=== PATIENT | female | born 1985 | race Caucasian/White ===

== ENCOUNTER 2017-07-20 23:40 | Observation (INO) | payer OTHER ==
[2017-07-20] MEDS ORDERED: LR 1,000 ML IV SCH (23:45)
[2017-07-20] MEDS ORDERED: ONDANSETRON 4 MG/2 ML VIAL IVP PRN (23:55)
[2017-07-21 00:13] LABS: ABSOLUTE IMMATURE GRANULOCYTES 0.17 10^3/uL (0.00-0.10); ADD DIFF? NO; ADD MORPH? NO; ADD SCAN? NO; ATYPICAL LYMPHOCYTE FLAG 0 (0-99); FRAGMENT RBC FLAG 0 (0-99); HEMATOCRIT 37.6 % (38.0-47.0); HEMOGLOBIN 12.8 g/dL (12.6-16.3); LEFT SHIFT FLG 0 (0-99); LIPEMIA HEMOLYSIS FLAG 90 (0-99); MEAN CELL HEMOGLOBIN 32.7 pg (27.9-34.1); MEAN CELL VOLUME 95.9 fL (81.5-99.8); MEAN PLATELET VOLUME 10.6 fL (8.7-11.7); PLATELET CLUMPS FLAG 0 (0-99); PLATELET COUNT 275 10^3/uL (150-400); RED BLOOD CELL COUNT 3.92 10^6/uL (4.18-5.33); RED CELL DISTRIBUTION WIDTH 13.6 % (11.5-15.2)
[2017-07-21 00:29] LABS: ALANINE AMINOTRANSFERASE 38 IU/L (9-52); ASPARTATE AMINOTRANSFERASE 20 IU/L (14-46); BILIRUBIN,TOTAL 0.4 mg/dL (0.1-1.4); BILIRUBIN-UNCONJUGATED 0.4 mg/dL (0.0-1.1); CREATININE 0.6 mg/dL (0.6-1.0); GLOMERULAR FILTRATION RATE > 60; LACTATE DEHYDROGENASE 392 IU/L (313-618); URIC ACID 4.6 mg/dL (2.5-6.8)
[2017-07-21 00:55] LABS: COLOR YELLOW; LEUKOCYTE ESTERASE,URINE NEGATIVE (NEGATIVE); NITRITE,URINE NEGATIVE (NEGATIVE)
--- NOTE | 2017-07-21 00:58 | GHP ---
[f rep st] HISTORY AND PHYSICAL DATE OF ADMISSION: 07/20/2017 Patient is a 32-year-old G1, P0, who is at 31 weeks gestational age by an IVF with her partner's donor egg and sperm donor egg. The patient states that today she has just had significant amount of nausea and vomiting. Patient had traveled from [place] today and had a hamburger for lunch at an outside location and started to have nausea and vomiting throughout the day and has not been able to hold anything down. Significant in her history is she does have celiac disease. This is an IVF . Her blood type is A positive. She is rubella immune, hepatitis B surface antigen negative, HIV negative, RPR negative, and all other pap tests, etc., were all negative as well. Patient then presents to labor and delivery with the following. No fevers no chills PHYSICAL EXAMINATION: VITAL SIGNS: 135/90. Pulse 108 temp 36.7 LUNGS: Clear to auscultation bilateral. HEART: Regular rate and rhythm. She is slightly tachy at 106 ABDOMEN: Gravid and soft and nontender. heart rate tracing 130s with accelerations category 1 tracing. Irregular contractions on monitor SVE long/closed/High EXTREMITIES: No calf tenderness and no calf pain. Labs: h/h 13.4/36.6 Plt 189 WBC 17.3 AST 20 ALT 38 UA ketones 2+ ASSESSMENT AND PLAN: 1. Intrauterine at 31 weeks via in vitro fertilization . 2. Possible stomach flu with nausea, vomiting. Will start IV fluids. Given IV LR bolus. 3. Elevated blood pressures. Will order preeclamptic labs and a urinalysis. Patient also to receive Zofran for nausea. Patient symptoms improved with hydration follow up in clinic today no work today Follow up with WBC Return precautions given Rx Zofran /[id number]/MODL MTDD
== END 2017-07-21 01:15 | disposition home or self-care (01) ==
LOC: FLD 23:40
PROVIDERS: ADMIT Obstetrics & Gynecology; ATTEND Obstetrics & Gynecology
DX: O21.9 Vomiting of pregnancy, unspecified (principal); O28.9 Unspecified abnormal findings on antenatal screening of mother; R03.0 Elevated blood-pressure reading, without diagnosis of hypertension
CPT/HCPCS: G0378; J2405

== ENCOUNTER 2017-09-06 16:33 | Inpatient (IN) | payer OTHER ==
[2017-09-06] MEDS ORDERED: OXYTOCIN 20 UNIT in LR 1,000 ML IV PRN (18:02)
[2017-09-06] MEDS ORDERED: LR 1,000 ML IV PRN (18:02)
[2017-09-06] MEDS ORDERED: OLIVE OIL 118 ML BTL MISC PRN (18:02)
[2017-09-06] MEDS ORDERED: EPSOM SALT 454 GM TP PRN (18:02)
[2017-09-06] MEDS ORDERED: TERBUTALINE SULFATE 1 MG/ML VIAL IV PRN (18:02)
--- NOTE | 2017-09-06 18:02 | PDGENHP ---
History and Physical History and Physical: HPI: Patient is a 28 yo with IUP@ 38-0wks that presents to L&D with complaints of a headache x 24 hours despite relief attempts with Tylenol. She reports having some elevated BP's in the office and today. She denies any chest pain, SOB, epigastric pain, or visual changes. She denies any strong/intense contractions, LOF, VB. She reports +FM. EDC: 09/20/17 which is based on IVF transfer date. Her is complicated by: IVF (donor embryo), rubella NI, celiac disease Review of Systems: Constitutional: Denies any fever, chills, or fatigue HEENT: denies any visual changes, difficulty swallowing, hearing loss Cardiovascular: Denies any chest pain, palpitations, leg swelling Respiratory: denies any cough, wheezing, or shortness of breathe GI: Denies any nausea, vomiting, diarrhea, constipation : denies any dysuria, urgency, frequency, vaginal bleeding Musculoskeletal: denies any muscle or bone pain Skin: denies any rashes Neuro: denies any headache, seizures, lightheadedness, dizziness, or loss of consciousness Psychiatric: denies any depression, anxiety, or SI/HI thoughts HISTORY: Previous OB history: SAB x1 (09/2016) Past medical history: rubella NI, irregular heartbeat- normal cardiology eval ( per pt), celiac disease Past surgical history: ankle surgery x2, lap ovarian cystectomy, eustachian tubes x4 Medications: PNV, baby ASA, vitamin D Allergies (list reaction): NKDA LABS: Rh: A+ ABS: Neg Rubella: Immune HbsAg: NR HIV: NR VDRL: NR 1hr: 106 GC: Neg Chlamydia: Neg Pap: Normal GBS: negative PHYSICAL EXAM: Constitutional: WN, A&Ox3 HEENT: normocephalic atraumatic, supple Heart: RRR, no murmur Chest: CTA-B Abdomen: Soft, nontender, gravid SVE: cl/th/high Extremities: trace edema, negative homans sign, 1+DTRs, neg clonus Neuro: grossly normal Psych: normal affect assessment: Reassuring FHTs, baseline 145 +accels, no decels, moderate variability Contractions: toco q 4-8 Assessment: 1) 28yo with IUP@ 38wks (by IVF transfer date) 2) IOL 2/2 pre-eclampsia without severe features 3) GBS negative 4) Cat 1 FHR tracing Plan: 1) Admit to L&D 2) monitor BPs, consider starting Magnesium sulfate if BPs >/=160/110 3) start IOL with cytotec 4) cont EFM 5) consulted with Dr. Janie Olvera- agrees with POC
[2017-09-06 18:04] LABS: PLATELET COUNT 269 10^3/uL (150-400)
[2017-09-06] MEDS ORDERED: LR 1,000 ML IV ONE (18:46)
[2017-09-06] MEDS: ACETAMINOPHEN 500 MG TAB PO PRN (19:15)
[2017-09-06] MEDS: MISOPROSTOL 100 MCG TAB PO SCH (20:32)
[2017-09-07] MEDS: MISOPROSTOL 100 MCG TAB PO SCH ×4 (00:36→13:24)
[2017-09-07] MEDS: ACETAMINOPHEN 500 MG TAB PO PRN ×2 (04:09→22:41)
--- NOTE | 2017-09-07 07:01 | OBPROG ---
Labor Progress Note Assessment/Plan: Assessment: [id number] with IUP@38-1wks PreEclampsia without severe features GBS Negative IOL, s/p cytotec x2, paez bulb in place currently Plan: expectant management pain management PRN start pitocin once paez bulb out reassess 2hr/PRN anticipate 09/07/17 06:58 Subjective/Intrapartum Course: 09/07/17 06:59 Pt doing well, was able to get some sleep. She states she is feeling contractions, but denies any pain medication. Her partner, Damaris, is @ BS and supportive. She reports mild headaches through the night, relieved with tylenol. She denies any visual changes, epigastric pain. Objective: 09/06/17 17:45 09/06/17 17:45 Patient ABO/Rh A POSITIVE 09/06/17 17:45 Uric Acid 4.8 mg/dL (2.5-6.8) 09/06/17 17:45 Total Bilirubin 0.4 mg/dL (0.1-1.4) 09/06/17 17:45 Conjugated Bilirubin 0.2 mg/dL (0.0-0.5) 09/06/17 17:45 Unconjugated Bilirubin 0.2 mg/dL (0.0-1.1) 09/06/17 17:45 AST 29 IU/L (14-46) 09/06/17 17:45 ALT 34 IU/L (9-52) 09/06/17 17:45 Lactate Dehydrogenase 400 IU/L (313-618) 09/06/17 17:45 - SVE Dilation (cm): 1 Effacement (%): 50 Station: -2 Membranes: Intact - Contraction Pattern Assessment Current Contraction Pattern: Regular - Procedures Non-surgical Procedures: Other (Specify) (paez bulb placed, 40mL) Oxytocin Orders Assessment - Pre-Induction/Augmentation Assessment Gestational Age: 38 week(s) and 0 day(s) ICD10 Worksheet Patient Problems: Problems Problem Status Onset Encounter for induction of labor Acute Pre-eclampsia during in third trimester, antepartum Acute - ICD10 Problem Qualifiers (1) Pre-eclampsia during in third trimester, antepartum (2) Encounter for induction of labor
--- NOTE | 2017-09-07 09:47 | OBPROG ---
Labor Progress Note Assessment/Plan: Assessment: IUP at 38+ wks preeclampsia - stable BP and headache controlled with tylenol, labs normal cytotec with non-favorable cervix yesterday, paez since 6:30a Plan: will remove paez at 8 hrs and begin pitocin 09/07/17 09:45 Subjective/Intrapartum Course: 09/07/17 06:59 Pt doing well, was able to get some sleep. She states she is feeling contractions, but denies any pain medication. Her partner, Damaris, is @ BS and supportive. She reports mild headaches through the night, relieved with tylenol. She denies any visual changes, epigastric pain. 09/07/17 09:47 Pt doing ok - now having some back pain- feels good leaning on ball. COSTA ok after tylenol at 4a. cramping with paez. Objective: 09/06/17 17:45 09/06/17 17:45 Patient ABO/Rh A POSITIVE 09/06/17 17:45 Uric Acid 4.8 mg/dL (2.5-6.8) 09/06/17 17:45 Total Bilirubin 0.4 mg/dL (0.1-1.4) 09/06/17 17:45 Conjugated Bilirubin 0.2 mg/dL (0.0-0.5) 09/06/17 17:45 Unconjugated Bilirubin 0.2 mg/dL (0.0-1.1) 09/06/17 17:45 AST 29 IU/L (14-46) 09/06/17 17:45 ALT 34 IU/L (9-52) 09/06/17 17:45 Lactate Dehydrogenase 400 IU/L (313-618) 09/06/17 17:45 - SVE Membranes: Intact - Contraction Pattern Assessment Current Contraction Pattern: Regular (q 2-5 min since paez) - FHR Assessment Wayne FHR (bpm): 140 FHR Pattern Variability: Moderate FHR Category: 1 Oxytocin Orders Assessment - Pre-Induction/Augmentation Assessment Gestational Age: 38 week(s) and 0 day(s) ICD10 Worksheet Patient Problems: Problems Problem Status Onset Pre-eclampsia during in third trimester, antepartum Acute Encounter for induction of labor Acute
[2017-09-07] MEDS ORDERED: LIDOCAINE 1% 300 MG/30 ML SDV ONE (14:18)
[2017-09-07] MEDS ORDERED: OXYTOCIN 10 UNIT/ML VIAL ONE (14:19)
[2017-09-07] MEDS ORDERED: AMMONIA AROMATIC 1 EACH AMP IH ONE (14:19)
[2017-09-07] MEDS ORDERED: TERBUTALINE SULFATE 1 MG/ML VIAL ONE (14:19)
[2017-09-07] MEDS ORDERED: MISOPROSTOL 200 MCG TAB ONE (14:19)
[2017-09-07] MEDS ORDERED: OLIVE OIL 118 ML BTL ONE (14:19)
--- NOTE | 2017-09-07 15:03 | OBPROG ---
Labor Progress Note Assessment/Plan: Assessment: IUP at 38+ wks preeclampsia - stable BP and headache controlled with tylenol, labs normal cytotec with non-favorable cervix yesterday, paez out and favorable cx - will begin pit Plan: begin pitocin, AROM when desires 09/07/17 09:45 09/07/17 14:58 Subjective/Intrapartum Course: 09/07/17 06:59 Pt doing well, was able to get some sleep. She states she is feeling contractions, but denies any pain medication. Her partner, Damaris, is @ BS and supportive. She reports mild headaches through the night, relieved with tylenol. She denies any visual changes, epigastric pain. 09/07/17 09:47 Pt doing ok - now having some back pain- feels good leaning on ball. COSTA ok after tylenol at 4a. cramping with paez. 09/07/17 14:59 Pt doing ok - not back pain now - ready for paez removal, has eaten lightly today. No COSTA or n/v - no visual changes 09/07/17 15:03 Paez was removed and cx 75/-1, light bloody show Objective: 09/06/17 17:45 09/06/17 17:45 Patient ABO/Rh A POSITIVE 09/06/17 17:45 Uric Acid 4.8 mg/dL (2.5-6.8) 09/06/17 17:45 Total Bilirubin 0.4 mg/dL (0.1-1.4) 09/06/17 17:45 Conjugated Bilirubin 0.2 mg/dL (0.0-0.5) 09/06/17 17:45 Unconjugated Bilirubin 0.2 mg/dL (0.0-1.1) 09/06/17 17:45 AST 29 IU/L (14-46) 09/06/17 17:45 ALT 34 IU/L (9-52) 09/06/17 17:45 Lactate Dehydrogenase 400 IU/L (313-618) 09/06/17 17:45 - SVE Dilation (cm): 4 Effacement (%): 75 Station: -1 Membranes: Intact - Contraction Pattern Assessment Current Contraction Pattern: Regular (q3-5 min) - FHR Assessment Wayne FHR (bpm): 140 FHR Pattern Variability: Moderate FHR Category: 1 - Procedures Non-surgical Procedures: Other (Specify) (paez bulb placed, 40mL) Oxytocin Orders Assessment - Pre-Induction/Augmentation Assessment Gestational Age: 38 week(s) and 0 day(s) ICD10 Worksheet Patient Problems: Problems Problem Status Onset Encounter for induction of labor Acute Pre-eclampsia during in third trimester, antepartum Acute
[2017-09-07] MEDS ORDERED: LR 500 ML IV PRN (15:04)
[2017-09-07] MEDS ORDERED: OXYTOCIN 30 UNIT in NS 500 ML IV SCH (15:15)
[2017-09-07] MEDS ORDERED: CALCIUM CARBONATE 500 MG CHEWABLE TAB PO ONE (17:54)
[2017-09-07] MEDS ORDERED: CALCIUM CARBONATE 500 MG CHEWABLE TAB PO PRN (17:56)
--- NOTE | 2017-09-07 20:09 | OBPROG ---
Labor Progress Note Assessment/Plan: Assessment: IUP at 38+ wks preeclampsia - stable BP and headache controlled with tylenol, labs normal cytotec with non-favorable cervix yesterday, paez out and favorable cx - pit for several hours desires LEEANN then AROM Plan: LEEANN now as pt wants to rest, then AROM 09/07/17 09:45 09/07/17 14:58 09/07/17 20:06 Subjective/Intrapartum Course: 09/07/17 06:59 Pt doing well, was able to get some sleep. She states she is feeling contractions, but denies any pain medication. Her partner, Damaris, is @ BS and supportive. She reports mild headaches through the night, relieved with tylenol. She denies any visual changes, epigastric pain. 09/07/17 09:47 Pt doing ok - now having some back pain- feels good leaning on ball. COSTA ok after tylenol at 4a. cramping with paez. 09/07/17 14:59 Pt doing ok - not back pain now - ready for paez removal, has eaten lightly today. No COSTA or n/v - no visual changes 09/07/17 15:03 Paez was removed and cx 4/75/-1, light bloody show 09/07/17 20:07 pt has been on pit - on 11 mu/min, mild to mod intensity - wants LEEANN to rest then AROM Objective: 09/06/17 17:45 09/06/17 17:45 Patient ABO/Rh A POSITIVE 09/06/17 17:45 Uric Acid 4.8 mg/dL (2.5-6.8) 09/06/17 17:45 Total Bilirubin 0.4 mg/dL (0.1-1.4) 09/06/17 17:45 Conjugated Bilirubin 0.2 mg/dL (0.0-0.5) 09/06/17 17:45 Unconjugated Bilirubin 0.2 mg/dL (0.0-1.1) 09/06/17 17:45 AST 29 IU/L (14-46) 09/06/17 17:45 ALT 34 IU/L (9-52) 09/06/17 17:45 Lactate Dehydrogenase 400 IU/L (313-618) 09/06/17 17:45 - SVE Membranes: Intact - Contraction Pattern Assessment Current Contraction Pattern: Regular (q 3-4 min on 11 pit) - FHR Assessment Wayne FHR (bpm): 140 FHR Pattern Variability: Moderate FHR Category: 1 Oxytocin Orders Assessment - Pre-Induction/Augmentation Assessment Gestational Age: 38 week(s) and 0 day(s) ICD10 Worksheet Patient Problems: Problems Problem Status Onset Encounter for induction of labor Acute Pre-eclampsia during in third trimester, antepartum Acute
--- NOTE | 2017-09-07 20:41 | PREANESOB ---
Obstetric Pre-Anesthesia Info - General Info : 2 Para: 0 SHERI: 09/20/17 Gestational Age: 38 week(s) and 0 day(s) - Info Status: Full Term FHR Pattern: Reassuring - Labor Status Cervical Dilation per last OB SVE: 4 Station per last OB SVE: -1 Labor Epidural: Yes Anesthesia Allergies/Adverse Reactions: Allergy/AdvReac Type Severity Reaction Status Date / Time gluten Allergy Verified 09/06/17 17:41 Home Medications: Medication Instructions Recorded Ondansetron Odt [Zofran Odt 4 mg 4 mg PO Q4 #20 tab 07/21/17 (*)] Aspirin 81mg (*) 09/06/17 Docusate Sodium [Colace] 09/06/17 IRON,CARBONYL [IRON] 09/06/17 Vit27&Calcium/Iron/FA 09/06/17 [] Vitamin D3 2000 units tab (OTC) 09/06/17 Visit Medications: Generic Name Dose Route Start Last Admin Trade Name Freq PRN Reason Stop Dose Admin Acetaminophen 1,000 mg 09/06/17 18:45 09/07/17 04:09 Tylenol PO 03/05/18 18:44 1,000 mg Q6HRS PRN Administration Pain, Mild/Fever, Can Take PO Calcium Carbonate 500 mg 09/07/17 17:56 Tums PO 03/06/18 17:55 TID PRN Indigestion Oxytocin 20 unit/ Lactated 1,002 mls @ 150 mls/hr 09/06/17 18:02 Ringer's IV PRN PRN Post- bleeding Lactated Ringer's 500 mls @ 500 mls/hr 09/07/17 15:04 Lr IV 09/08/17 15:04 PRN PRN Maternal Hypotension Oxytocin 30 unit/ Sodium 503 mls @ 0 mls/hr 09/07/17 15:15 09/07/17 15:21 Chloride IV 03/06/18 15:14 503 mls CONT KAYDEN Administration Protocol Per Protocol Ibuprofen 600 mg 09/06/17 18:02 Motrin PO 03/05/18 18:01 Q6HRS PRN post , inflammation Magnesium Sulfate 454 gm 09/06/17 18:02 Epsom Salt TP 03/05/18 18:01 Q1H PRN perineal discomfort Ruth Oil 118 ml 09/06/17 18:02 Sweet Oil MISC 03/05/18 18:01 ONCE PRN perineal massage Terbutaline Sulfate 0.25 mg 09/06/17 18:02 Brethine IV 03/05/18 18:01 ONCE PRN Tachysystole Discontinued Medications Generic Name Dose Route Start Last Admin Trade Name Marquisq PRN Reason Stop Dose Admin Ammonia (Aromatic Spirit) Confirm 09/07/17 14:19 Ammonia Aromatic Administered 09/07/17 14:20 Dose 1 each IH .STK-MED ONE Calcium Carbonate Confirm 09/07/17 17:54 Tums Administered 09/07/17 17:55 Dose 500 mg PO .STK-MED ONE Lactated Ringer's 1,000 mls @ 0 mls/hr 09/06/17 18:02 Lr IV 09/07/17 18:01 PRN PRN SEE PROTOCOL CONDITIONS Protocol Per Protocol Lactated Ringer's 1,000 mls @ 999 mls/hr 09/06/17 18:46 09/06/17 19:16 Lr IV 09/06/17 19:46 1,000 mls ONCE ONE Administration Lidocaine HCl Confirm 09/07/17 14:18 Lidocaine Hcl 1% Administered 09/07/17 14:19 Dose 300 mg .ROUTE .STK-MED ONE Misoprostol 50 mcg 09/06/17 20:15 09/07/17 13:24 Cytotec PO 03/05/18 20:14 Not Given Q4H KAYDEN Misoprostol Confirm 09/07/17 14:19 Cytotec Administered 09/07/17 14:20 Dose 800 mcg .ROUTE .STK-MED ONE Ruth Oil Confirm 09/07/17 14:19 Sweet Oil Administered 09/07/17 14:20 Dose 118 ml .ROUTE .STK-MED ONE Oxytocin Confirm 09/07/17 14:19 Pitocin Administered 09/07/17 14:20 Dose 40 unit .ROUTE .STK-MED ONE Terbutaline Sulfate Confirm 09/07/17 14:19 Brethine Administered 09/07/17 14:20 Dose 1 mg .ROUTE .STK-MED ONE - Vital Signs Height/Weight (Nursing): Height 167.64 cm Weight 92.079 kg Labs: 09/06/17 17:45 09/06/17 17:45 Patient ABO/Rh A POSITIVE 09/06/17 17:45 Uric Acid 4.8 mg/dL (2.5-6.8) 09/06/17 17:45 Total Bilirubin 0.4 mg/dL (0.1-1.4) 09/06/17 17:45 Conjugated Bilirubin 0.2 mg/dL (0.0-0.5) 09/06/17 17:45 Unconjugated Bilirubin 0.2 mg/dL (0.0-1.1) 09/06/17 17:45 AST 29 IU/L (14-46) 09/06/17 17:45 ALT 34 IU/L (9-52) 09/06/17 17:45 Lactate Dehydrogenase 400 IU/L (313-618) 09/06/17 17:45
[2017-09-07] MEDS ORDERED: BUPIVACAINE 0.25% 30 ML SDV ONE (20:45)
[2017-09-07] MEDS ORDERED: fentaNYL 100 MCG/2 ML INJ ONE (20:45)
[2017-09-07] MEDS ORDERED: LR 500 ML IV SCH (21:00)
[2017-09-07] MEDS ORDERED: fentaNYL 2MCG/ML/BUP 0.1% RTU 100 ML EP SCH (21:00)
--- NOTE | 2017-09-07 22:43 | OBPROG ---
Labor Progress Note Assessment/Plan: Assessment: IUP at 38+ wks, mild COSTA now - will give tylenol preeclampsia - stable BP and headache controlled with tylenol, labs normal cytotec with non-favorable cervix yesterday, paez out and favorable cx - pit for several hours - no cx change Plan: LEEANN, AROM with clear fluid, cont pit 09/07/17 09:45 09/07/17 14:58 09/07/17 20:06 09/07/17 22:40 Subjective/Intrapartum Course: 09/07/17 06:59 Pt doing well, was able to get some sleep. She states she is feeling contractions, but denies any pain medication. Her partner, Damaris, is @ BS and supportive. She reports mild headaches through the night, relieved with tylenol. She denies any visual changes, epigastric pain. 09/07/17 09:47 Pt doing ok - now having some back pain- feels good leaning on ball. COSTA ok after tylenol at 4a. cramping with paez. 09/07/17 14:59 Pt doing ok - not back pain now - ready for paez removal, has eaten lightly today. No COSTA or n/v - no visual changes 09/07/17 15:03 Paez was removed and cx 4/75/-1, light bloody show 09/07/17 20:07 pt has been on pit - on 11 mu/min, mild to mod intensity - wants LEEANN to rest then AROM 09/07/17 22:41 comf now with LEEANN, AROM done with clear fluid. cx still 4/80/-1 very ant under sym. temp 37.4 will give 300ml fluids and tyl Objective: 09/06/17 17:45 09/06/17 17:45 Patient ABO/Rh A POSITIVE 09/06/17 17:45 Uric Acid 4.8 mg/dL (2.5-6.8) 09/06/17 17:45 Total Bilirubin 0.4 mg/dL (0.1-1.4) 09/06/17 17:45 Conjugated Bilirubin 0.2 mg/dL (0.0-0.5) 09/06/17 17:45 Unconjugated Bilirubin 0.2 mg/dL (0.0-1.1) 09/06/17 17:45 AST 29 IU/L (14-46) 09/06/17 17:45 ALT 34 IU/L (9-52) 09/06/17 17:45 Lactate Dehydrogenase 400 IU/L (313-618) 09/06/17 17:45 - SVE Dilation (cm): 4 Effacement (%): 80 Station: -1 Membranes: AROM Amniotic Fluid Color: Clear - Contraction Pattern Assessment Current Contraction Pattern: Regular (q 4 min on pit at 11) - FHR Assessment Wayne FHR (bpm): 140 FHR Pattern Variability: Moderate FHR Category: 1 (early decels noted now, immed after LEEANN had decel to 60s and some lates after but resolved.) - Procedures Non-surgical Procedures: Other (Specify) (paez bulb placed, 40mL) Oxytocin Orders Assessment - Pre-Induction/Augmentation Assessment Gestational Age: 38 week(s) and 0 day(s) ICD10 Worksheet Patient Problems: Problems Problem Status Onset Encounter for induction of labor Acute Pre-eclampsia during in third trimester, antepartum Acute
[2017-09-07] MEDS ORDERED: LR 1,000 ML IV SCH (23:00)
[2017-09-07] MEDS: PHENYLEPHRINE HCL 100 MCG/ML SYR IVP PRN (23:17)
[2017-09-08] MEDS: PHENYLEPHRINE HCL 100 MCG/ML SYR IVP PRN (00:01)
--- NOTE | 2017-09-08 08:06 | OBPROG ---
Labor Progress Note Assessment/Plan: Assessment: cat 2 fhr slow progress with pushing coping well comfortable with the epidural Plan:pushing continues slow descent 09/08/17 08:05 Subjective/Intrapartum Course: 09/07/17 06:59 Pt doing well, was able to get some sleep. She states she is feeling contractions, but denies any pain medication. Her partner, Damaris, is @ BS and supportive. She reports mild headaches through the night, relieved with tylenol. She denies any visual changes, epigastric pain. 09/07/17 09:47 Pt doing ok - now having some back pain- feels good leaning on ball. COSTA ok after tylenol at 4a. cramping with paez. 09/07/17 14:59 Pt doing ok - not back pain now - ready for paez removal, has eaten lightly today. No COSTA or n/v - no visual changes 09/07/17 15:03 Paez was removed and cx 4/75/-1, light bloody show 09/07/17 20:07 pt has been on pit - on 11 mu/min, mild to mod intensity - wants LEEANN to rest then AROM 09/07/17 22:41 comf now with LEEANN, AROM done with clear fluid. cx still 4/80/-1 very ant under sym. temp 37.4 will give 300ml fluids and tyl 09/08/17 08:04 Making slow progress with pushing Objective: 09/06/17 17:45 09/06/17 17:45 Patient ABO/Rh A POSITIVE 09/06/17 17:45 Uric Acid 4.8 mg/dL (2.5-6.8) 09/06/17 17:45 Total Bilirubin 0.4 mg/dL (0.1-1.4) 09/06/17 17:45 Conjugated Bilirubin 0.2 mg/dL (0.0-0.5) 09/06/17 17:45 Unconjugated Bilirubin 0.2 mg/dL (0.0-1.1) 09/06/17 17:45 AST 29 IU/L (14-46) 09/06/17 17:45 ALT 34 IU/L (9-52) 09/06/17 17:45 Lactate Dehydrogenase 400 IU/L (313-618) 09/06/17 17:45 - SVE Dilation (cm): 10 Effacement (%): 100 Station: +3 Membranes: AROM Amniotic Fluid Color: Clear - Contraction Pattern Assessment Current Contraction Pattern: Regular (q 4 min on pit at 11) - FHR Assessment Wayne FHR (bpm): 160 FHR Pattern Variability: Moderate FHR Category: 2 - Procedures Non-surgical Procedures: Other (Specify) (paez bulb placed, 40mL) Oxytocin Orders Assessment - Pre-Induction/Augmentation Assessment Gestational Age: 38 week(s) and 0 day(s) ICD10 Worksheet Patient Problems: Problems Problem Status Onset Encounter for induction of labor Acute Pre-eclampsia during in third trimester, antepartum Acute
--- NOTE | 2017-09-08 09:49 | OBDEL ---
Info Type: Vaginal Presentation at Delivery: Vertex L&D Analgesia/Anesthesia Type: Epidural GBS+: No Intrapartum Medications: Generic Name Dose Route Start Last Admin Trade Name Freq PRN Reason Stop Dose Admin Acetaminophen 1,000 mg 09/06/17 18:45 09/07/17 22:41 Tylenol PO 03/05/18 18:44 1,000 mg Q6HRS PRN Administration Pain, Mild/Fever, Can Take PO Oxytocin 30 unit/ Sodium 503 mls @ 0 mls/hr 09/07/17 15:15 09/07/17 15:21 Chloride IV 03/06/18 15:14 503 mls CONT KAYDEN Administration Protocol Per Protocol Phenylephrine HCl 100 mcg 09/07/17 20:39 09/08/17 00:01 Neosynephrine IVP 03/06/18 20:38 100 mcg .Q2M PRN Administration Hypotension Discontinued Medications Generic Name Dose Route Start Last Admin Trade Name Freq PRN Reason Stop Dose Admin Lactated Ringer's 1,000 mls @ 999 mls/hr 09/06/17 18:46 09/06/17 19:16 Lr IV 09/06/17 19:46 1,000 mls ONCE ONE Administration Lactated Ringer's 500 mls @ 500 mls/hr 09/07/17 15:04 09/07/17 21:56 Lr IV 09/08/17 15:04 500 mls PRN PRN Administration Maternal Hypotension Misoprostol 50 mcg 09/06/17 20:15 09/07/17 13:24 Cytotec PO 03/05/18 20:14 Not Given Q4H [facility] - Hospital Course Intrapartum: 09/07/17 06:59 Pt doing well, was able to get some sleep. She states she is feeling contractions, but denies any pain medication. Her partner, Damaris, is @ BS and supportive. She reports mild headaches through the night, relieved with tylenol. She denies any visual changes, epigastric pain. 09/07/17 09:47 Pt doing ok - now having some back pain- feels good leaning on ball. COSTA ok after tylenol at 4a. cramping with paez. 09/07/17 14:59 Pt doing ok - not back pain now - ready for paez removal, has eaten lightly today. No COSTA or n/v - no visual changes 09/07/17 15:03 Paez was removed and cx 4/75/-1, light bloody show 09/07/17 20:07 pt has been on pit - on 11 mu/min, mild to mod intensity - wants LEEANN to rest then AROM 09/07/17 22:41 comf now with LEEANN, AROM done with clear fluid. cx still 4/80/-1 very ant under sym. temp 37.4 will give 300ml fluids and tyl 09/08/17 08:04 Making slow progress with pushing Indications for Delivery: Preeclampsia Mild (Mild range BP's, COSTA, proteinuria - normal platelets/LFTs) Vaginal Delivery - Delivery Provider Delivery Physician/CNM: Alex Spann (Angie Torres CNM managing pt during 2nd stage, consulting Dr. Spann for VAVD) - Labor and Delivery Onset of Contractions Type: Induced (Cyototec > AROM > Pitocin) Rupture of Membranes Type: Artificial (AROM 2200 on 09/07/17) Amniotic Fluid Color: Clear Non-surgical Procedures: IUPC, Other (Specify) (paez bulb placed, 40mL) Laceration: 3rd Degree (Significant third degree, mostly through sphincter, but anal/rectal mucosa completely intact.) Repair: Other (Specify) (Two interrupted figure of eight sutures of 0-vicryl to reapproximate sphincter and perineal body bulk. Rest of remaining laceration repaired with 3-0 vicryl standard fashion.) Vaginal Sponge Count Correct: Yes Vaginal Needle Count Correct: Yes Vaginal Sweep Performed: Yes EBL: 400cc Delivery Events: Other (Specify) (Placenta took 30 minutes to deliver, but did deliver intact with significant traction on the cord) - Medications Labor Augmentation/Induction Methods Used: Pitocin, Prostin (Cytotec) Labor Augmentation/Induction Indication: Other (Specify) (Preeclampsia without severe features) Assissted Delivery Assisted Delivery Type: Vacuum (MightE vac) Station: Outlet Pop offs (Total): 0 Pulls (Total): 2 Assisted Delivery Comment: Consulted by Angie Torres CNM to cynthia Parker for potential operative vaginal delivery. When I met with Elena he was pushing and had been for approximately 2.5hrs, making slow but steady progress to +4/5 with mild caput, direct OA position, overall reassuring Category II tracing. CNM had discussed options for potential OVD with patient. Discussed with them that VAVD reasonable , briefly reviewed risks/benefits and pt comfortable with that plan going forward. Bladder had been drained recently by RN. Bed broken, Might-E-vac applied between contractions to [id number]. Easy placement, checked to ensure to maternal tissue between cup and head. With one contraction, no pop- offs, and two pulls, baby brought under symphysis easily and delivered direct OA. Shoulders delivered very quickly thereafter (left anterior). Baby brought to mom's chest - mouth/nose suctioned by RN and cord clamped and cut after >60 secs delay. Placenta did not deliver after 30 minutes of gentle traction and fundal massage. At 30 minutes I did need to put quite a bit of traction on the cord to deliver - but placenta did deliver spontaneously and completely intact. She had slow ongoing bleeding during this 30 minutes of waiting for placenta which contributed largely to EBL. After placenta, perineum inspected and found to have significant 3rd degree almost all the way through the sphincter, but rectal mucosa completely intact. Local lidocaine injected liberally and had epidural bolused. Sphincter ends identified easily with Joy clamp to assist with reapproximating - done with with two generous, wide figure of eight interrupted sutures of 0-vicryl (posterior, superior). Following this the sphincter was completey re-established and good bulk to perineum following repair. Rest of laceration repaired with 3-0 vicryl standard fashion. Bladder drained with red rubber catheter following repair after betadine splash. Mom and baby doing well at conclusion, sharp and sponge counts correct. Data SHERI: 09/20/17 Gestational Age: 38 week(s) and 2 day(s) [place] Delivery Date: 09/08/17 Delivery Time: 08:39 Sex of Infant: Female Score (1 Min): 8 Score (5 Min): 9 ICD10 Worksheet Patient Problems: Problems Problem Status Onset Encounter for induction of labor Acute Pre-eclampsia during in third trimester, antepartum Acute
[2017-09-08] MEDS ORDERED: ACETAMINOPHEN 325 MG TAB PO PRN (10:29)
[2017-09-08] MEDS ORDERED: SIMETHICONE 80 MG TAB CHEW PO PRN (10:29)
[2017-09-08] MEDS ORDERED: HYDROCODONE/APAP 5/325 TAB PO PRN (10:29)
[2017-09-08] MEDS: IBUPROFEN 600 MG TAB PO PRN ×2 (13:09→19:45)
--- NOTE | 2017-09-08 13:53 | CPEKG ---
Heart Rate: 152 RR Interval: 395 P-R Interval: 108 QRSD Interval: 64 QT Interval: 260 QTC Interval: 414 P Pratts: 68 QRS Pratts: 76 T Wave Pratts: -6 EKG Severity - OTHERWISE NORMAL ECG - EKG Impression: SINUS TACHYCARDIA vs. atrial tachycardia EKG Impression: MINIMAL ST DEPRESSION, INFERIOR LEADS Electronically Signed By: Johnnie Cox 10-Sep-2017 09:18:47
[2017-09-08] MEDS: DOCUSATE SODIUM 100 MG CAP PO SCH (20:43)
[2017-09-08] MEDS: HYDROCORTISONE 1% CREAM TP SCH ×2 (20:43→23:12)
[2017-09-09] MEDS: IBUPROFEN 600 MG TAB PO PRN ×3 (04:35→18:30)
[2017-09-09] MEDS: DOCUSATE SODIUM 100 MG CAP PO SCH ×2 (08:39→18:30)
--- NOTE | 2017-09-09 09:59 | OBPP ---
Progress Note Assessment/Plan: Assessment: 32 y/o PPD #1 s/p vacuum assisted vaginal delivery with PP hemorrhage and anemia Plan: Pt is stable now and bleeding is minimal. She is feeling much less symptomatic from her anemia now. We will observe her closely. Iron TID and bowel protocol. 09/09/17 10:00 Subjective/ Course: 09/09/17 09:51 Pt is doing much better this am. She has ambulated and voided and now denies dizziness. She has min lochia now. Her perineal pain and cramping is controlled with Ibuprofen. She is working with but baby's latch is difficulty now. She is getting colustrum with expression. She doesn't feel the need for blood transfusion now. Objective: 09/09/17 06:00 09/06/17 17:45 Patient ABO/Rh A POSITIVE 09/06/17 17:45 Uric Acid 4.8 mg/dL (2.5-6.8) 09/06/17 17:45 Total Bilirubin 0.4 mg/dL (0.1-1.4) 09/06/17 17:45 Conjugated Bilirubin 0.2 mg/dL (0.0-0.5) 09/06/17 17:45 Unconjugated Bilirubin 0.2 mg/dL (0.0-1.1) 09/06/17 17:45 AST 29 IU/L (14-46) 09/06/17 17:45 ALT 34 IU/L (9-52) 09/06/17 17:45 Lactate Dehydrogenase 400 IU/L (313-618) 09/06/17 17:45 Temp Pulse Resp BP Pulse Ox 36.1 C 98 18 109/66 96 09/09/17 05:05 09/09/17 05:05 09/09/17 05:05 09/09/17 05:05 09/09/17 05:05 Uterine Position/Fundal Height: Umbilicus -2 Uterine Tone: Firm Physical Exam - Physical Exam Neck: non-tender, full range of motion, supple Respiratory: chest non-tender, lungs clear, normal breath sounds Cardiac/Chest: regular rate, rhythm Abdomen: normal bowel sounds Extremities: non-tender, swelling (no), Sharee's sign (neg)
[2017-09-09] MEDS ORDERED: POLYETHYLENE GLYCOL 3350 17 GM PKT PO PRN (10:02)
[2017-09-09] MEDS ORDERED: MAGNESIUM HYDROXIDE 30 ML UDCUP PO PRN (10:02)
[2017-09-09] MEDS ORDERED: LACTULOSE 20 GM/30 ML UDCUP PO PRN (10:02)
[2017-09-09] MEDS ORDERED: BISACODYL 10 MG SUPP PR PRN (10:02)
[2017-09-09] MEDS: HYDROCORTISONE 1% CREAM TP SCH ×2 (12:20→21:10)
[2017-09-09] MEDS: IRON POLYSAC/IRON HEME 28 MG TAB PO SCH ×2 (16:16→21:27)
[2017-09-09] MEDS ORDERED: MEASLES,MUMPS&RUBELLA VACC/PF 0.5 ML VIAL SC ONE (20:07)
[2017-09-09] MEDS: SENNOSIDES/DOCUSATE SODIUM TAB PO SCH (21:27)
[2017-09-10] MEDS: IBUPROFEN 600 MG TAB PO PRN ×2 (00:57→10:53)
[2017-09-10 04:37] VITALS: RESP 16
[2017-09-10 09:29] VITALS: BP 128/79; PULSE 61; TEMP 97.4; O2SAT 97
[2017-09-10] MEDS: IRON POLYSAC/IRON HEME 28 MG TAB PO SCH ×2 (10:53→16:06)
--- NOTE | 2017-09-10 11:44 | OBPP ---
Progress Note Assessment/Plan: Assessment: PPD 2 s/p VAVD severe anemia preeclampsia - b/p great Plan: d/c home, hct stable - low at 18.7, rec iron TID 09/07/17 09:45 09/07/17 14:58 09/07/17 20:06 09/07/17 22:40 09/10/17 11:40 Subjective/ Course: 09/09/17 09:51 Pt is doing much better this am. She has ambulated and voided and now denies dizziness. She has min lochia now. Her perineal pain and cramping is controlled with Ibuprofen. She is working with but baby's latch is difficulty now. She is getting colustrum with expression. She doesn't feel the need for blood transfusion now. 09/10/17 11:42 Pt doing ok. Denies dizziness but is very tired. Bld varies with BF and did have a clot last noc after baby slept for 3 hrs. urinating fine. denies COSTA or n/v or visual changes. baby latching and pt also pumping Objective: 09/10/17 11:20 09/06/17 17:45 Patient ABO/Rh A POSITIVE 09/06/17 17:45 Uric Acid 4.8 mg/dL (2.5-6.8) 09/06/17 17:45 Total Bilirubin 0.4 mg/dL (0.1-1.4) 09/06/17 17:45 Conjugated Bilirubin 0.2 mg/dL (0.0-0.5) 09/06/17 17:45 Unconjugated Bilirubin 0.2 mg/dL (0.0-1.1) 09/06/17 17:45 AST 29 IU/L (14-46) 09/06/17 17:45 ALT 34 IU/L (9-52) 09/06/17 17:45 Lactate Dehydrogenase 400 IU/L (313-618) 09/06/17 17:45 Temp Pulse Resp BP Pulse Ox 36.3 C 61 16 128/79 H 97 09/10/17 08:00 09/10/17 08:00 09/10/17 08:00 09/10/17 08:00 09/10/17 08:00 Uterine Position/Fundal Height: Umbilicus -1 Uterine Tone: Firm Physical Exam - Physical Exam Abdomen: non-tender, soft Extremities: non-tender, pedal edema (mild) Skin: normal color, warm/dry Neuro/Psych: alert, normal mood/affect
--- NOTE | 2017-09-10 11:50 | OBGCSDC ---
General Delivery Information - General Info : 2 Para: 1 Abortions: 1 Type: Vaginal L&D Analgesia/Anesthesia Type: Epidural, Local Admission Date: 09/07/17 Labs: Patient ABO/Rh A POSITIVE 09/06/17 17:45 Hct 18.7 % (38.0-47.0) L 09/10/17 11:20 - Hospital Course Intrapartum: 09/07/17 06:59 Pt doing well, was able to get some sleep. She states she is feeling contractions, but denies any pain medication. Her partner, Damaris, is @ BS and supportive. She reports mild headaches through the night, relieved with tylenol. She denies any visual changes, epigastric pain. 09/07/17 09:47 Pt doing ok - now having some back pain- feels good leaning on ball. COSTA ok after tylenol at 4a. cramping with paez. 09/07/17 14:59 Pt doing ok - not back pain now - ready for paez removal, has eaten lightly today. No COSTA or n/v - no visual changes 09/07/17 15:03 Paez was removed and cx 4/75/-1, light bloody show 09/07/17 20:07 pt has been on pit - on 11 mu/min, mild to mod intensity - wants LEEANN to rest then AROM 09/07/17 22:41 comf now with LEEANN, AROM done with clear fluid. cx still 4/80/-1 very ant under sym. temp 37.4 will give 300ml fluids and tyl 09/08/17 08:04 Making slow progress with pushing : 09/09/17 09:51 Pt is doing much better this am. She has ambulated and voided and now denies dizziness. She has min lochia now. Her perineal pain and cramping is controlled with Ibuprofen. She is working with but baby's latch is difficulty now. She is getting colustrum with expression. She doesn't feel the need for blood transfusion now. 09/10/17 11:42 Pt doing ok. Denies dizziness but is very tired. Bld varies with BF and did have a clot last noc after baby slept for 3 hrs. urinating fine. denies COSTA or n/v or visual changes. baby latching and pt also pumping Vaginal - Delivery Provider Delivery Physician/CNM: Alex Spann (Angie Torres CNM managing pt during 2nd stage, consulting Dr. Spann for VAVD) - Diagnosis Labor: Induced (Cyototec > AROM > Pitocin) Rupture of Membranes Type: Artificial (AROM 2200 on 09/07/17) Amniotic Fluid Color: Clear Laceration: 3rd Degree (Significant third degree, mostly through sphincter, but anal/rectal mucosa completely intact.) Repair: Other (Specify) (Two interrupted figure of eight sutures of 0-vicryl to reapproximate sphincter and perineal body bulk. Rest of remaining laceration repaired with 3-0 vicryl standard fashion.) Delivery Events: Other (Specify) (Placenta took 30 minutes to deliver, but did deliver intact with significant traction on the cord) - Procedures Assisted Delivery Type: Vacuum (MightE vac) Non-surgical Procedures: IUPC, Other (Specify) (paez bulb placed, 40mL) - Delivery Non-surgical Procedures: IUPC, Other (Specify) (paez bulb placed, 40mL) EBL: 400cc [place] Data SHERI: 09/20/17 Gestational Age: 38 week(s) and 4 day(s) [place] Delivery Date: 09/08/17 Delivery Time: 08:39 Sex of : Female Score (1 Min): 8 Score (5 Min): 9 Discharge Information - Discharge Information Condition: Good Instruction/Follow Up: See Instruction Sheet, Four Weeks (with therapist), Six Weeks (with Dr Spann)
[2017-09-10] MEDS: DOCUSATE SODIUM 100 MG CAP PO SCH (12:30)
[2017-09-10] MEDS: SENNOSIDES/DOCUSATE SODIUM TAB PO SCH (12:30)
[2017-09-10] MEDS: HYDROCORTISONE 1% CREAM TP SCH (15:47)
== END 2017-09-10 16:30 | disposition home or self-care (01) | DRG 774 ==
LOC: FLD 16:33 → OBSVTOIN 09-07 07:29 → FOB 09-08 16:27
PROVIDERS: ADMIT Advanced Practice Midwife; ATTEND Obstetrics & Gynecology
DX: O14.04 Mild to moderate pre-eclampsia, complicating childbirth (principal); O70.20 Third degree perineal laceration during delivery, unspecified; O72.1 Other immediate postpartum hemorrhage; O90.81 Anemia of the puerperium; Z23 Encounter for immunization; Z3A.38 38 weeks gestation of pregnancy; Z37.0 Single live birth
CPT/HCPCS: G0378; J2370; J3010; J3105